=== PATIENT | female | born 1940 | race Caucasian/White ===

== ENCOUNTER 2018-12-29 08:43 | Inpatient (IN) | payer BC ==
[~2018-12-29] VITALS: Ht 165.1 cm; Wt 60.0 kg
[2018-12-29] VITALS (28 sets, daily range): BP systolic 68–153; BP diastolic 34–73; PULSE 72–97; RESP 10–22; Ht 165.1 cm; Wt 60.0 kg
[~2018-12-29 08:43] MED LIST: ALEN70TA5 PO; SERT25TA PO
[2018-12-29] MEDS ORDERED: NEOMYC/POLYMYX/BACIT 30 GM OINT ONE (10:09)
[2018-12-29] MEDS ORDERED: POLYMYXIN/BACITRACIN 1L IRRIG ONE (10:09)
[2018-12-29] MEDS ORDERED: ROPIVACAINE 0.5 % 30 ML VIAL ONE ×2 (10:09→10:37)
[2018-12-29] MEDS ORDERED: MIDAZOLAM 1 MG/ML 2 ML INJ ONE (10:26)
[2018-12-29] MEDS ORDERED: FENTAnyl 50 MCG/ML VIAL ONE (10:26)
[2018-12-29] MEDS ORDERED: ROPIVACAINE 0.2% 20 ML VIAL ONE (10:50)
[2018-12-29] MEDS ORDERED: LIDOCAINE 2% (SDV) 5 ML INJ ONE (11:16)
[2018-12-29] MEDS ORDERED: ONDANSETRON 4 MG INJ ONE (11:16)
[2018-12-29] MEDS ORDERED: SUCCINYLCHOLINE CHLORIDE 100 MG/5 ML SYG IV ONE (11:16)
[2018-12-29] MEDS ORDERED: ROCURONIUM 50 MG INJ ONE ×2 (11:16→13:23)
[2018-12-29] MEDS ORDERED: FAMOTIDINE 20 MG INJ ONE (11:16)
[2018-12-29] MEDS ORDERED: CEFAZOLIN 1 GM INJ ONE ×2 (11:16→13:58)
[2018-12-29] MEDS ORDERED: DEXAMETHASONE 4 MG/ML 5 ML INJ ONE (11:16)
[2018-12-29] MEDS ORDERED: PROPOFOL 20 ML ONE (11:16)
[2018-12-29] MEDS ORDERED: EPHEDrine 25 MG/5 ML SYG ONE ×2 (12:12→16:41)
[2018-12-29] MEDS ORDERED: PHENYLephrine (100 MCG/ML) 10ML SYG ONE (12:12)
[2018-12-29] MEDS ORDERED: POLYMYXIN/BACITRACIN 1L IRRIG IRR ONE ×2 (12:54→14:53)
[2018-12-29] MEDS ORDERED: hydrALAzine 20 MG INJ ONE (12:59)
[2018-12-29] MEDS ORDERED: LABETALOL HCL 20MG INJ ONE (13:24)
[2018-12-29] MEDS ORDERED: OXYCODONE/ACETAMINOPHEN (5/325) TAB PO PRN (13:30)
[2018-12-29] MEDS ORDERED: MEPERIDINE 25 MG INJ IV PRN (13:30)
[2018-12-29] MEDS ORDERED: DIPHENHYDRAMINE 50 MG INJ IV PRN (13:30)
[2018-12-29] MEDS ORDERED: PROCHLORPERAZINE 10 MG INJ IV PRN (13:30)
[2018-12-29] MEDS ORDERED: ONDANSETRON 4 MG INJ IV PRN ×2 (13:30→17:00)
[2018-12-29] MEDS ORDERED: HYDROmorphONE 1 MG/5 ML IV SYRINGE IV PRN ×3 (13:30)
[2018-12-29] MEDS ORDERED: HYDROmorphONE 2 MG/ML SYG ONE (14:07)
[2018-12-29] MEDS ORDERED: VANCOMYCIN 1 GM INJ ONE (14:31)
[2018-12-29] MEDS ORDERED: NEOSTIGMINE 3 MG/3 ML SYRINGE ONE ×2 (15:17→15:22)
[2018-12-29] MEDS ORDERED: GLYCOPYRROLATE 0.4 MG INJ ONE ×2 (15:17→15:22)
[2018-12-29] MEDS ORDERED: SUGAMMADEX SODIUM 200 MG/2 ML VIAL IV ONE (15:26)
[2018-12-29] MEDS ORDERED: EPHEDrine 25 MG/5 ML SYG IV PRN ×2 (16:30→17:00)
[2018-12-29] MEDS ORDERED: EPHEDrine 50 MG INJ ONE (16:37)
[2018-12-29] MEDS ORDERED: DIPHENHYDRAMINE 25 MG CAP PO PRN (17:00)
[2018-12-29] MEDS ORDERED: ALBUTEROL 0.083% (NEB) 2.5 MG/3 ML AMP ONE (17:14)
[2018-12-29] MEDS: FENTAnyl 50 MCG/ML VIAL IV PRN ×2 (17:21→17:41)
[2018-12-29] MEDS ORDERED: IPRATROPIUM (NEB) 0.5 MG/2.5 ML AMP HHN PRN (17:30)
[2018-12-29] MEDS ORDERED: ALBUTEROL 0.083% (NEB) 2.5 MG/3 ML AMP HHN PRN (17:30)
[2018-12-29] MEDS: CEFAZOLIN 1 GM/50 ML (PMX) 50 ML IVPB SCH (18:17)
[2018-12-29] MEDS ORDERED: AL HYDROX/MG HYDROX/SIMETH 30 ML CUP PO ONE (18:30)
[2018-12-29] MEDS: GABAPENTIN 300 MG CAP PO SCH (20:59)
[2018-12-29] MEDS: SERTRALINE 50 MG TAB PO SCH (20:59)
[2018-12-29] MEDS: LACTATED RINGER'S 1,000 ML IV SCH (20:59)
[2018-12-29] MEDS: PANTOPRAZOLE 40 MG INJ IV SCH (20:59)
[2018-12-29] MEDS: oxyCODONE 5 MG TAB PO PRN (23:13)
[2018-12-30 00:08] VITALS: BP 91/50; PULSE 80; RESP 16
[2018-12-30] MEDS: CEFAZOLIN 1 GM/50 ML (PMX) 50 ML IVPB SCH ×3 (00:25→13:59)
[2018-12-30] MEDS: LACTATED RINGER'S 1,000 ML IV SCH ×2 (00:26→20:00)
[2018-12-30] MEDS: HYDROmorphONE 1 MG/ML SYG IV PRN ×2 (00:45→13:01)
[2018-12-30 04:41] VITALS: BP 95/54; PULSE 93; RESP 16
[2018-12-30] MEDS: PANTOPRAZOLE 40 MG INJ IV SCH (05:55)
[2018-12-30 07:20] VITALS: BP 107/57; PULSE 108; RESP 18
[2018-12-30] MEDS: GABAPENTIN 300 MG CAP PO SCH ×3 (08:22→20:58)
[2018-12-30] MEDS ORDERED: AL HYDROX/MG HYDROX/SIMETH 30 ML CUP PO PRN (09:00)
[2018-12-30] MEDS ORDERED: SERTRALINE 50 MG TAB PO SCH (09:00)
[2018-12-30] MEDS: GUAIFENESIN/DM (SR) TAB PO SCH ×2 (11:04→20:59)
[2018-12-30] MEDS: oxyCODONE 5 MG TAB PO PRN ×2 (11:04→21:00)
[2018-12-30 13:16] VITALS: BP 113/55; PULSE 92; RESP 18
[2018-12-30] MEDS: ALBUTEROL/IPRATROPIUM (NEB) 3 ML AMP HHN SCH ×3 (14:10→20:09)
[2018-12-30] MEDS: PANTOPRAZOLE (EC) 40 MG TAB PO SCH ×2 (18:00→20:59)
[2018-12-30 19:46] VITALS: BP 127/59; PULSE 103; RESP 18
[2018-12-30] MEDS: SERTRALINE 50 MG TAB PO SCH (20:58)
[2018-12-30] MEDS: RIVAROXABAN 10 MG TABLET PO SCH (20:59)
[2018-12-31 01:43] VITALS: BP 129/61; PULSE 109; RESP 16
[2018-12-31] MEDS: oxyCODONE 5 MG TAB PO PRN ×3 (04:21→13:17)
[2018-12-31] MEDS: LACTATED RINGER'S 1,000 ML IV SCH (05:54)
[2018-12-31 07:40] VITALS: BP 120/56; PULSE 100; RESP 18
[2018-12-31] MEDS: ALBUTEROL/IPRATROPIUM (NEB) 3 ML AMP HHN SCH ×3 (08:30→16:56)
[2018-12-31] MEDS: GABAPENTIN 300 MG CAP PO SCH ×2 (09:05→13:17)
[2018-12-31] MEDS: GUAIFENESIN/DM (SR) TAB PO SCH (09:05)
[2018-12-31] MEDS: PANTOPRAZOLE (EC) 40 MG TAB PO SCH (09:07)
[2018-12-31] MEDS ORDERED: SODIUM PHOSPHATE 20 MEQ in SOD CHLORIDE 0.9% 250 ML IVPB ONE (10:00)
[2018-12-31] MEDS ORDERED: IOHEXOL 100 ML ONE (13:03)
[2018-12-31] MEDS ORDERED: SOD CHLORIDE 0.9% 100 ML ONE (13:03)
[2018-12-31 16:17] VITALS: BP 126/60; PULSE 104; RESP 18
[2018-12-31 20:00] VITALS: BP 129/60; RESP 18
[2018-12-31] MEDS ORDERED: DIPHENHYDRAMINE 50 MG INJ IV PRN (20:30)
[2018-12-31] MEDS ORDERED: DEXTROSE 5%-0.9% NACL 1,000 ML IV SCH (20:30)
[2018-12-31] MEDS ORDERED: ACETAMINOPHEN 650 MG SUPP PR PRN (20:30)
[2018-12-31] MEDS ORDERED: PANTOPRAZOLE 40 MG INJ IV SCH (21:00)
[2018-12-31] MEDS: LEVALBUTEROL (NEB) 0.31 MG/3 ML AMP HHN SCH (21:15)
[2018-12-31] MEDS: PIPER-TAZO 3.375 GM IV (PMX) 100 ML IVPB SCH (22:57)
[2018-12-31] MEDS: morphine 4 MG/ML VIAL IV PRN (23:15)
[2018-12-31 23:18] VITALS: BP 110/58; PULSE 106; RESP 16
[2019-01-01] MEDS: LEVALBUTEROL (NEB) 0.31 MG/3 ML AMP HHN SCH ×4 (01:43→20:20)
[2019-01-01 02:04] VITALS: BP 113/57; PULSE 97; RESP 18
[2019-01-01] MEDS: PIPER-TAZO 3.375 GM IV (PMX) 100 ML IVPB SCH ×3 (06:47→17:39)
[2019-01-01 07:55] VITALS: BP 141/66; PULSE 108; RESP 18
[2019-01-01] MEDS ORDERED: DEXTROSE 5%-0.45% NACL 1,000 ML IV SCH (08:30)
[2019-01-01] MEDS: morphine 4 MG/ML VIAL IV PRN ×2 (09:01→20:09)
[2019-01-01] MEDS: PANTOPRAZOLE (EC) 40 MG TAB PO SCH ×2 (10:40→17:41)
[2019-01-01] MEDS: HYDROCODONE/APAP (5/325) TAB PO PRN ×2 (10:40→17:41)
[2019-01-01] MEDS: RIVAROXABAN 10 MG TABLET PO SCH ×2 (10:41→17:13)
[2019-01-01] MEDS: ASPIRIN (EC) 81 MG TAB PO SCH (17:44)
[2019-01-01 19:45] VITALS: BP 105/56; PULSE 105; RESP 18
[2019-01-01] MEDS: GUAIFENESIN/DM (SR) TAB PO SCH (20:09)
[2019-01-01] MEDS: SERTRALINE 50 MG TAB PO SCH (20:10)
[2019-01-01] MEDS: ACETAMINOPHEN 325 MG TAB PO PRN (22:27)
[2019-01-02] MEDS: morphine 4 MG/ML VIAL IV PRN ×2 (00:35→21:55)
[2019-01-02] MEDS: PIPER-TAZO 3.375 GM IV (PMX) 100 ML IVPB SCH ×2 (00:35→06:22)
[2019-01-02] MEDS: LEVALBUTEROL (NEB) 0.31 MG/3 ML AMP HHN SCH (01:01)
[2019-01-02 02:40] VITALS: BP 110/63; PULSE 92; RESP 18
[2019-01-02] MEDS: PANTOPRAZOLE (EC) 40 MG TAB PO SCH ×2 (06:22→17:14)
[2019-01-02] MEDS: ACETAMINOPHEN 325 MG TAB PO PRN (06:27)
[2019-01-02 08:06] VITALS: BP 134/69; PULSE 92; RESP 18
[2019-01-02] MEDS: ASPIRIN (EC) 81 MG TAB PO SCH (08:43)
[2019-01-02] MEDS: GUAIFENESIN/DM (SR) TAB PO SCH ×2 (08:43→22:00)
[2019-01-02] MEDS: AMOXICILLIN/CLAV 875 MG TAB PO SCH ×2 (08:43→22:00)
[2019-01-02] MEDS: LEVALBUTEROL (NEB) 0.63 MG/3 ML AMP INH SCH ×3 (08:59→16:47)
[2019-01-02] MEDS ORDERED: FUROSEMIDE 20 MG INJ IV ONE (09:00)
[2019-01-02] MEDS ORDERED: POTASSIUM CHLORIDE (SR) 10 MEQ TAB PO ONE (09:00)
[2019-01-02] MEDS: HYDROCODONE/APAP (5/325) TAB PO PRN ×2 (10:24→17:14)
[2019-01-02 10:44] VITALS: BP 133/64; PULSE 91; RESP 20
[2019-01-02] MEDS: SOD FERRIC GLUC COMPLX 125 MG in SOD CHLORIDE 0.9% 100 ML IVPB SCH (13:35)
[2019-01-02] MEDS: TRIAMCINOLONE ACET 0.1% ORAB 5 GM MM SCH ×2 (13:36→21:00)
[2019-01-02 15:10] VITALS: BP 123/60; PULSE 98; RESP 20
[2019-01-02] MEDS: RIVAROXABAN 10 MG TABLET PO SCH (17:13)
[2019-01-02 20:12] VITALS: BP 122/61; PULSE 97; RESP 20
[2019-01-02] MEDS: SERTRALINE 50 MG TAB PO SCH (22:00)
[2019-01-03] VITALS: BP 126/59; PULSE 98; RESP 20
[2019-01-03 04:00] VITALS: BP 124/63; PULSE 95; RESP 20
[2019-01-03] MEDS: ACETAMINOPHEN 325 MG TAB PO PRN ×2 (04:40→22:54)
[2019-01-03] MEDS: PANTOPRAZOLE (EC) 40 MG TAB PO SCH ×2 (06:12→17:14)
[2019-01-03] MEDS: LEVALBUTEROL (NEB) 0.63 MG/3 ML AMP INH SCH ×3 (07:52→16:54)
[2019-01-03 08:02] VITALS: BP 117/53; PULSE 97; RESP 20
[2019-01-03] MEDS: AMOXICILLIN/CLAV 875 MG TAB PO SCH ×2 (08:11→20:34)
[2019-01-03] MEDS: ASPIRIN (EC) 81 MG TAB PO SCH (08:11)
[2019-01-03] MEDS: GUAIFENESIN/DM (SR) TAB PO SCH ×2 (08:11→20:34)
[2019-01-03] MEDS: TRIAMCINOLONE ACET 0.1% ORAB 5 GM MM SCH ×2 (08:13→20:38)
[2019-01-03] MEDS: HYDROCODONE/APAP (5/325) TAB PO PRN ×3 (10:42→21:58)
[2019-01-03 11:12] VITALS: BP 111/61; PULSE 95; RESP 20
[2019-01-03] MEDS: SOD FERRIC GLUC COMPLX 125 MG in SOD CHLORIDE 0.9% 100 ML IVPB SCH (12:59)
[2019-01-03 15:14] VITALS: BP_SYST 121; BP_SYST 91; BP_DIAS 54; BP_DIAS 63; PULSE 92; PULSE 95; RESP 20
[2019-01-03] MEDS: RIVAROXABAN 10 MG TABLET PO SCH (17:14)
[2019-01-03] MEDS: SERTRALINE 50 MG TAB PO SCH (20:34)
[2019-01-03 20:48] VITALS: BP 113/55; PULSE 93; RESP 18
[2019-01-04 00:35] VITALS: BP 108/53; PULSE 98; RESP 18
[2019-01-04 04:56] VITALS: BP 131/71; PULSE 78; RESP 16
[2019-01-04] MEDS: PANTOPRAZOLE (EC) 40 MG TAB PO SCH ×2 (05:45→17:07)
[2019-01-04 07:10] VITALS: BP 157/73; PULSE 90; RESP 20
[2019-01-04] MEDS: LEVALBUTEROL (NEB) 0.63 MG/3 ML AMP INH SCH ×3 (07:32→16:49)
[2019-01-04] MEDS: AMOXICILLIN/CLAV 875 MG TAB PO SCH ×2 (07:45→20:38)
[2019-01-04] MEDS: ACETAMINOPHEN 325 MG TAB PO PRN ×2 (07:46→23:25)
[2019-01-04] MEDS: ASPIRIN (EC) 81 MG TAB PO SCH (07:46)
[2019-01-04] MEDS: GUAIFENESIN/DM (SR) TAB PO SCH ×2 (07:46→20:38)
[2019-01-04] MEDS: TRIAMCINOLONE ACET 0.1% ORAB 5 GM MM SCH ×2 (07:48→20:39)
[2019-01-04] MEDS: HYDROCODONE/APAP (5/325) TAB PO PRN ×3 (09:29→20:38)
[2019-01-04 11:18] VITALS: BP 117/59; PULSE 95; RESP 20
[2019-01-04] MEDS: SOD FERRIC GLUC COMPLX 125 MG in SOD CHLORIDE 0.9% 100 ML IVPB SCH (12:01)
[2019-01-04 16:06] VITALS: BP 144/65; PULSE 65; RESP 18
[2019-01-04] MEDS: RIVAROXABAN 10 MG TABLET PO SCH (17:07)
[2019-01-04 19:52] VITALS: BP 106/55; PULSE 103; RESP 18
[2019-01-04] MEDS: SERTRALINE 50 MG TAB PO SCH (20:39)
[2019-01-05] VITALS: BP 130/60; PULSE 92; RESP 18
[2019-01-05 04:00] VITALS: BP 119/58; PULSE 85; RESP 19
[2019-01-05] MEDS: PANTOPRAZOLE (EC) 40 MG TAB PO SCH ×2 (05:31→18:01)
[2019-01-05 07:00] VITALS: BP 127/61; RESP 20
[2019-01-05] MEDS ORDERED: FUROSEMIDE 20 MG INJ IV ONE (08:30)
[2019-01-05] MEDS ORDERED: POTASSIUM CHLORIDE (SR) 10 MEQ TAB PO ONE (08:30)
[2019-01-05] MEDS: AMOXICILLIN/CLAV 875 MG TAB PO SCH ×2 (08:43→20:44)
[2019-01-05] MEDS: GUAIFENESIN/DM (SR) TAB PO SCH ×2 (08:43→20:44)
[2019-01-05] MEDS: ASPIRIN (EC) 81 MG TAB PO SCH (08:43)
[2019-01-05] MEDS: HYDROCODONE/APAP (5/325) TAB PO PRN ×2 (08:45→18:01)
[2019-01-05] MEDS: LEVALBUTEROL (NEB) 0.63 MG/3 ML AMP INH SCH ×3 (08:51→17:57)
[2019-01-05] MEDS ORDERED: LACTULOSE 30ML CUP PO ONE (09:00)
[2019-01-05] MEDS: TRIAMCINOLONE ACET 0.1% ORAB 5 GM MM SCH ×2 (10:06→20:45)
[2019-01-05 11:44] VITALS: BP 110/57; PULSE 98; RESP 19
[2019-01-05] MEDS: SOD FERRIC GLUC COMPLX 125 MG in SOD CHLORIDE 0.9% 100 ML IVPB SCH (13:11)
[2019-01-05 15:00] VITALS: BP 120/58; PULSE 103; RESP 19
[2019-01-05] MEDS: RIVAROXABAN 10 MG TABLET PO SCH (18:01)
[2019-01-05] MEDS ORDERED: TETRAHYDROZOLINE 0.05% 15 ML OPH BOTH EYES PRN (19:00)
[2019-01-05] MEDS ORDERED: ARTIFICIAL TEARS 15 ML OPH BOTH EYES PRN (19:00)
[2019-01-05] MEDS ORDERED: HYPROMELLOSE 0.5% 15 ML OPH BOTH EYES PRN (19:30)
[2019-01-05] MEDS: DOCUSATE SODIUM 100 MG CAP PO SCH (20:44)
[2019-01-05] MEDS: SERTRALINE 50 MG TAB PO SCH (20:44)
[2019-01-05 20:47] VITALS: BP 120/60; PULSE 96; RESP 19
[2019-01-06 02:38] VITALS: BP 124/62; PULSE 91; RESP 17
[2019-01-06] MEDS: PANTOPRAZOLE (EC) 40 MG TAB PO SCH (06:05)
[2019-01-06 08:30] VITALS: BP 120/58; PULSE 93; RESP 19
[2019-01-06] MEDS: AMOXICILLIN/CLAV 875 MG TAB PO SCH ×2 (09:34→18:03)
[2019-01-06] MEDS: GUAIFENESIN/DM (SR) TAB PO SCH ×2 (09:34→20:22)
[2019-01-06] MEDS: ASPIRIN (EC) 81 MG TAB PO SCH (09:34)
[2019-01-06] MEDS: TRIAMCINOLONE ACET 0.1% ORAB 5 GM MM SCH (09:35)
[2019-01-06] MEDS: SOD FERRIC GLUC COMPLX 125 MG in SOD CHLORIDE 0.9% 100 ML IVPB SCH (13:00)
[2019-01-06 16:02] VITALS: BP 119/59; PULSE 96; RESP 18
[2019-01-06] MEDS: RIVAROXABAN 10 MG TABLET PO SCH (18:03)
[2019-01-06] MEDS: HYDROCODONE/APAP (5/325) TAB PO PRN (18:03)
[2019-01-06 20:15] VITALS: BP 112/55; PULSE 95; RESP 18
[2019-01-06] MEDS: DOCUSATE SODIUM 100 MG CAP PO SCH (20:22)
[2019-01-06] MEDS: SERTRALINE 50 MG TAB PO SCH (20:25)
[2019-01-06] MEDS ORDERED: FERROUS SULFATE (EC) 325 MG TAB PO SCH (21:00)
[2019-01-07] MEDS ORDERED: PANTOPRAZOLE (EC) 40 MG TAB PO SCH (06:00)
== END 2019-01-06 20:45 | DRG 503 ==
LOC: SDS 08:43 → REC 18:06 → MS1 19:05 → OBSVTOIN 12-31 12:07 → 6WM 01-02 10:28 → MS1 01-05 17:09
PROVIDERS: ADMIT Orthopaedic Surgery; ATTEND Internal Medicine
PROC: 0SGH0KZ Fusion of Right Tarsal Joint with Nonautologous Tissue Substitute, Open Approach (ICD-10-PCS; 2018-12-29)
PROC: 0SGH0KZ Fusion of Right Tarsal Joint with Nonautologous Tissue Substitute, Open Approach (ICD-10-PCS; 2018-12-29)
PROC: 0SGH0KZ Fusion of Right Tarsal Joint with Nonautologous Tissue Substitute, Open Approach (ICD-10-PCS; 2018-12-29)
PROC: 0QBL0ZZ Excision of Right Tarsal, Open Approach (ICD-10-PCS; principal; 2018-12-29 11:00)
DX: M19.071 Primary osteoarthritis, right ankle and foot (principal); J69.0 Pneumonitis due to inhalation of food and vomit; I63.9 Cerebral infarction, unspecified; I50.33 Acute on chronic diastolic (congestive) heart failure; C85.90 Non-Hodgkin lymphoma, unspecified, unspecified site; D62 Acute posthemorrhagic anemia; Z85.820 Personal history of malignant melanoma of skin; R27.8 Other lack of coordination; R09.02 Hypoxemia; R06.89 Other abnormalities of breathing; M89.9 Disorder of bone, unspecified; I27.20 Pulmonary hypertension, unspecified; D69.6 Thrombocytopenia, unspecified; R41.82 Altered mental status, unspecified; T40.605A Adverse effect of unspecified narcotics, initial encounter; Y92.239 Unspecified place in hospital as the place of occurrence of the external cause
CPT/HCPCS: 36600; 70450; 70553; 71045; 71275; 73630; 80048; 80053; 80061; 80076; 81001; 81003; 82140; 82607; 82728; 82803; 83540; 83735; 84100; 84145; 84443; 84484; 85025; 86788; 86789; 87081; 87086; 92610; 93005; 93306; 93880; 94640; 94664; 97110; 97116; 97162; 97164; 97530; C1713; C9113; G0378; J0360; J0690; J1100; J1170; J1200; J1940; J2250; J2270; J2370; J2405; J2543; J2710; J2795; J2916; J3010; J3370; J7042; J7050; J7120; Q9967